=== PATIENT | male | born 1965 | race Caucasian/White ===

== ENCOUNTER 2016-11-27 22:03 | Inpatient (IN) | payer SELFPAY ==
[2016-11-27] MEDS ORDERED: NS 1000 ML 1,000 ML ONE ×2 (22:19→23:22)
[2016-11-27] MEDS ORDERED: NS 1000 ML 1,000 ML IV ONE ×2 (22:19→23:21)
[2016-11-27 22:26] VITALS: BMI 31.0
--- NOTE | 2016-11-27 22:32 | DR.GENAD ---
HPI - PCP Primary Care Physician: FRANCIS - HPI Comment HPI Comment: PATIENT IS NAUSEATED BUT NOT VOMITING. HIS BLOOD PRESURE IS LOW IN TRIAGE. 75/61. PATIENT IS WEAK, DIZZY AND FATIGUE. NO FEVER. PATIENT SAID HE IS BEING EXPOSE TO HIT WELL. - Complaint/Symptoms Chief Complaint Doctors Comments: UPPER ABDOMINAL PAIN, DIARRHEA WITH NAUSEA TIMES TWO DAYS. Chief Complaint:: PT C/O STOMACH PAIN PT POINTS TO UPPER ABD ALL THE WAY ACROSS - Nurses notes reviewed Nurses Notes Review: Yes - Source History Provided: Patient - Mode of Arrival Mode of Arrival: Wheelchair - Timing Onset of Chief Complaint: 11/26/16 Came on: Suddenly - Duration Duration: Constant Duration: Days - Severity Severity: Moderate PMH - PMH Past Medical History: Yes Past Medical History: COPD, Coronary Artery Disease, Hypertension Past Medical History Comment: BACK PAIN Past Surgical History: Yes Surgical History: CABG/Valve Surgery, Cholecystectomy, Joint Replacement - Family History History of Family Medical Conditions: No - Social History Does patient currently use any type of tobacco product: Yes Have you used tobacco products in the last 12 months: Yes Type of Tobacco Use: Cigarettes Does any household member use tobacco: No Alcohol Use: None Do you use any recreational Drugs:: No Lives With: Spouse Lives Where: Home - infectious screening In the last 2 months have you had wt loss of >10#?: NO Have you had fever, night sweats or hemotysis?: No Have you traveled outside the country in the last 6 months?: No Isolation: Standard ROS - Review of Systems Constitutional: Weakness, Fatigue, Loss of Appetite. negative: Chills, Fever Eyes: No Symptoms Reported. negative: Eye Pain, Discharge ENTM: No Symptoms Reported. negative: Ear Pain, Nose Discharge, Nose Congestion , Throat Pain Respiratoy: Non-Productive Cough, Short of Breath. negative: Wheezing, Hemoptysis Cardiovascular: No Symptoms Reported Gastrointestinal/Abdominal: Abdominal Pain, Diarrhea, Nausea. negative: Vomiting Genitourinary: No Symptoms Reported. negative: Dysuria, Frequency, Hematuria Neurological: No Symptoms Reported, Weakness, Dizziness Musculoskeletal: No Symptoms Reported, Muscle Pain Integumentary: No Symptoms Reported Hematologic/Lymphatic: No Symptoms Reported Endocrine: No Symptoms Reported All Other Systems: Reviewed and Negative PE - Vital Signs Vitals: Temperature 98.6 F Pulse Rate [Apical] 70 Pulse Rate 76 Respiratory Rate 23 Blood Pressure [Right Arm] 80/49 Blood Pressure 75/61 O2 Sat by Pulse Oximetry 96 - General Limitations: No Limitations General Appearance: Alert - Head Head Exam: Normal Inspection - Eyes Eye exam: Normal Appearance - ENT ENT Exam: Normal External Ear Exam External Ear Exam: Normal External Inspection TM/Canal Exam: Bilateral Normal Nose Exam: Normal Nose Exam Mouth Exam: Normal Inspection Throat Exam: Normal Inspection - Neck Neck Exam: Normal Inspection, Trachea Midline - Chest Chest Inspection: Symmetric Chest Wall Rise - Respiratory Respiratory Exam: Normal Lung Sounds Bilat Respiratory Exam: Bilateral Rhonchi, Upper Rhonchi, Lower Rhonchi - Cardiovascular Cardiovascular Exam: Regular Rate, Normal Rhythm, Normal Heart Sounds - Abdominal Exam Abdominal Exam: Normal Bowel Sounds, Soft, Tenderness Abdominal Tenderness: Diffuse, Moderate - Extremities Extremities Exam: Normal Inspection, Tenderness - Back Back Exam: Normal Inspection - Neurologic Neurological Exam: Alert, Oriented X3, CN II-XII Intact, Reflexes Normal. negative: Motor Sensory Deficit - Psychiatric Psychiatric Exam: Normal Affect, Normal Mood - Skin Skin Exam: Erythema MDM - Additional Information Additional Information Obtained From: Family - Differential Diagnosis Differential Diagnosis: ABDOMINAL PAIN, HYPOTENSION, DIARRHEA, SEVERE DEHYDRATION Course - Treatment Treatment: SEE ORDERS. - Education/Counseling Education/Counseling: Patient, Education Educated On: Diagnosis, Needs for Follow Up ROR - Labs Reviewed Laboratory Results Reviewed?: Yes Result Diagrams: 11/28/16 04:45 11/28/16 04:45 Laboratory: WBC 13.9 X10^3/uL (3.6-10.0) H 11/27/16 22:26 RBC 4.89 X10^6/uL (4.7-6.0) 11/27/16 22:26 Hgb 14.6 g/dL (13.5-18.0) 11/27/16 22:26 Hct 42.5 % (42.0-54.0) 11/27/16 22:26 MCV 87.0 fL (80.0-100.0) 11/27/16 22:26 MCH 29.9 pg (27.0-34.0) 11/27/16 22:26 MCHC 34.3 g/dL (33.0-35.0) 11/27/16 22:26 RDW 14.3 % (11.6-16.5) 11/27/16 22:26 Plt Count 259 X10^3/uL (150.0-450.0) 11/27/16 22:26 MPV 8.1 fL (7.4-11.0) 11/27/16 22:26 Neut % 73.3 % (42.0-75.0) 11/27/16 22:26 Lymph % 13.8 % (21.0-51.0) L 11/27/16 22:26 Camp % 8.2 % (0.0-13.0) 11/27/16 22:26 Eos % 4.0 % (0.9-2.9) H 11/27/16 22:26 Baso % 0.7 % (0.2-1.0) 11/27/16 22: Neut # 10.2 x10^3/uL (2.2-4.8) H 11/27/16 22:26 Lymph # 1.9 X10^3/uL (1.3-2.9) 11/27/16 22:26 Camp # 1.1 x10^3/uL (0.3-0.8) H 11/27/16 22:26 Eos # 0.6 x10^3/uL (0.0-0.2) H 11/27/16 22:26 Baso # 0.1 X10^3/uL (0.0-0.1) 11/27/16 22:26 Absolute Nucleated RBC 0.0 /100WBC 11/27/16 22:26 INR Target Range - 11/27/16 22:20 INR 1.04 (0.8-1.3) 11/27/16 22:20 PTT 34.3 SECONDS (22.9-36.5) 11/27/16 22:20 PTT Comment - 11/27/16 22:20 Sodium 133 mmol/L (136-145) L 11/27/16 22:26 Corrected Sodium 134 mmol/L (136-145) L 11/27/16 22:26 Potassium 3.9 mmol/L (3.5-5.1) 11/27/16 22:26 Chloride 99 mmol/L (98-107) 11/27/16 22:26 Carbon Dioxide 22.2 mmol/L (21-32) 11/27/16 22:26 BUN 66 mg/dL (7-18) H 11/27/16 22:26 Creatinine 3.81 mg/dL (0.70-1.30) H 11/27/16 22:26 Est GFR (MDRD) Af Amer 21 (>60) L 11/27/16 22:26 Est GFR (MDRD) Non-Af 18 (>60) L 11/27/16 22:26 Glucose 145 mg/dL (65-99) H 11/27/16 22:26 Calcium 8.3 mg/dL (8.5-10.1) L 11/27/16 22:26 Corrected Calcium TNP 11/27/16 22:26 Total Bilirubin 0.60 mg/dL (0.2-1.0) 11/27/16 22:26 AST 52 Units/L (15-37) H 11/27/16 22:26 ALT 38 Units/L (12-78) 11/27/16 22:26 Alkaline Phosphatase 77 Units/L (46-116) 11/27/16 22:26 Creatine Kinase 1222 Units/L (39-308) H 11/27/16 22:26 CK-MB (CK-2) 10.1 ng/mL (0-4.0) H* 11/27/16 22:26 CK/CKMB % Calc 0.8 % (<4) 11/27/16 22:26 Troponin I < 0.02 ng/mL (0-1.5) 11/27/16 22:26 Total Protein 8.0 g/dL (6.4-8.2) 11/27/16 22:26 Albumin 3.8 g/dL (3.4-5.0) 11/27/16 22:26 Globulin 4.2 g/dL (2.5-4.5) 11/27/16 22:26 Albumin/Globulin Ratio 0.9 Ratio (1.1-2.1) L 11/27/16 22:26 Amylase 74 Units/L (25-115) 11/27/16 22:26 Lipase 146 Units/L (73-393) 11/27/16 22:26 - Other Results Comments: REPORT DISCUSS WITH PATIENT - EKG Rhythm: NSR (EKG NOTED) - Diagnosis Discharge Problem: Severe dehydration Hypotension Qualifiers: Hypotension type: unspecified hypotension type Qualified Code(s): I95.9 - Hypotension, unspecified Abdominal pain Qualifiers: Abdominal location: generalized Qualified Code(s): R10.84 - Generalized abdominal pain Diarrhea Qualifiers: Diarrhea type: unspecified type Qualified Code(s): R19.7 - Diarrhea, unspecified - Discharge Plan Disposition: 09 ADMITTED INPATIENT Condition: Stable - Follow ups/Referrals - Instructions
[2016-11-27 22:37] LABS: BASOPHILS # (AUTO) 0.1 X10^3/uL (0.0-0.1); BASOPHILS % (AUTO) 0.7 % (0.2-1.0); EOSINOPHILS # (AUTO) 0.6 x10^3/uL (0.0-0.2); HEMATOCRIT 42.5 % (42.0-54.0); HEMOGLOBIN 14.6 g/dL (13.5-18.0); LYMPHOCYTES # (AUTO) 1.9 X10^3/uL (1.3-2.9); LYMPHOCYTES % (AUTO) 13.8 % (21.0-51.0); MEAN CORPUSCULAR HEMOGLOBIN 29.9 pg (27.0-34.0); MEAN CORPUSCULAR HGB CONC 34.3 g/dL (33.0-35.0); MEAN PLATELET VOLUME 8.1 fL (7.4-11.0); MONOCYTES # (AUTO) 1.1 x10^3/uL (0.3-0.8); MONOCYTES % (AUTO) 8.2 % (0.0-13.0); NEUTROPHILS # (AUTO) 10.2 x10^3/uL (2.2-4.8); NEUTROPHILS % (AUTO) 73.3 % (42.0-75.0); PLATELET COUNT 259 X10^3/uL (150.0-450.0); RED BLOOD COUNT 4.89 X10^6/uL (4.7-6.0); RED CELL DISTRIBUTION WIDTH 14.3 % (11.6-16.5); WHITE BLOOD COUNT 13.9 X10^3/uL (3.6-10.0)
[2016-11-27 22:47] LABS: ALANINE AMINOTRANSFERASE 38 Units/L (12-78); ALBUMIN 3.8 g/dL (3.4-5.0); ALKALINE PHOSPHATASE 77 Units/L (46-116); AMYLASE 74 Units/L (25-115); ASPARTATE AMINO TRANSFERASE 52 Units/L (15-37); BLOOD UREA NITROGEN 66 mg/dL (7-18); CALCIUM 8.3 mg/dL (8.5-10.1); CARBON DIOXIDE 22.2 mmol/L (21-32); CHLORIDE 99 mmol/L (98-107); COR NA(FOR HYPERGLY) 134 mmol/L (136-145); CREATININE 3.81 mg/dL (0.70-1.30); LIPASE 146 Units/L (73-393); SODIUM 133 mmol/L (136-145); eGFR BLACK RACES 21 (>60); eGFR NON BLACK RACES 18 (>60)
--- NOTE | 2016-11-27 23:09 | RAD ---
HISTORY: Epigastric pain Study: Single-view chest Comparison: None Findings: Prior sternotomy. The trachea is midline. The cardiac silhouette is unremarkable. The lungs are daniel ar without focal mass or consolidation. There is no effusion or pneumothorax. The bony thorax is gr ossly unremarkable. IMPRESSION: No acute cardiopulmonary disease. Reported By:
[2016-11-27 23:27] LABS: TROPONIN I < 0.02 ng/mL (0-1.5)
[2016-11-27 23:28] LABS: CKMB % 0.8 % (<4)
[2016-11-27 23:29] LABS: CREATINE KINASE 1222 Units/L (39-308); CREATINE KINASE MB 10.1 ng/mL (0-4.0)
[2016-11-28 00:36] LABS: BILIRUBIN,URINE NEGATIVE (NEGATIVE); BLOOD/HEMOGLOBIN,URINE 4+ (NEGATIVE); GLUCOSE, URINE NEGATIVE (NEGATIVE); KETONES,URINE NEGATIVE (NEGATIVE); LEUKOCYTE ESTERASE ,URINE 2+ (NEGATIVE); NITRITES,URINE NEGATIVE (NEGATIVE); PROTEIN,URINE 2+ (NEGATIVE); UROBILINOGEN,URINE NORMAL (NORMAL)
[2016-11-28] MEDS ORDERED: ROCEPHIN VIAL 1 GM 1 GM in NS 50 ML IV + SPIKE MINIBAG* 50 ML IV ONE (00:38)
[2016-11-28 00:43] LABS: APPEARANCE,URINE SLIGHTLY HAZY (CLEAR); BACTERIA,URINE 1+ /HPF (NEGATIVE); COLOR,URINE YELLOW (YELLOW); HYALINE CASTS, URINE FEW /LPF (NEGATIVE); RBC,URINE 0-3 /HPF (NEGATIVE); SQUAMOUS EPITHELIAL CELL,UR RARE /HPF (NEGATIVE)
[2016-11-28] MEDS ORDERED: ROCEPHIN 1 GM IV PREMIX * OUT OF STOCK 50 ML IV ONE (00:52)
[2016-11-28] MEDS ORDERED: NS 1000 ML 1,000 ML ONE (00:53)
[2016-11-28] MEDS: NS 1000 ML 1,000 ML IV SCH ×3 (00:58→17:03)
[2016-11-28] MEDS ORDERED: NS 1000 ML 1,000 ML IV SCH (01:00)
[2016-11-28] MEDS ORDERED: PEPCID 20 MG IV PREMIX* 20 MG/50 ML BAG IV SCH (02:00)
[2016-11-28] MEDS ORDERED: FLUVIRIN IM ONE (02:10)
[2016-11-28 05:11] LABS: BASOPHILS # (AUTO) 0.1 X10^3/uL (0.0-0.1); EOSINOPHILS # (AUTO) 0.4 x10^3/uL (0.0-0.2); EOSINOPHILS % (AUTO) 4.4 % (0.9-2.9); HEMATOCRIT 39.8 % (42.0-54.0); HEMOGLOBIN 13.8 g/dL (13.5-18.0); LYMPHOCYTES # (AUTO) 1.6 X10^3/uL (1.3-2.9); LYMPHOCYTES % (AUTO) 17.3 % (21.0-51.0); MEAN CORPUSCULAR HEMOGLOBIN 30.3 pg (27.0-34.0); MEAN CORPUSCULAR HGB CONC 34.6 g/dL (33.0-35.0); MEAN CORPUSCULAR VOLUME 87.5 fL (80.0-100.0); MEAN PLATELET VOLUME 8.3 fL (7.4-11.0); MONOCYTES # (AUTO) 0.6 x10^3/uL (0.3-0.8); MONOCYTES % (AUTO) 5.9 % (0.0-13.0); NEUTROPHILS # (AUTO) 6.8 x10^3/uL (2.2-4.8); NEUTROPHILS % (AUTO) 71.4 % (42.0-75.0); PLATELET COUNT 197 X10^3/uL (150.0-450.0); RED BLOOD COUNT 4.55 X10^6/uL (4.7-6.0); RED CELL DISTRIBUTION WIDTH 14.4 % (11.6-16.5); WHITE BLOOD COUNT 9.5 X10^3/uL (3.6-10.0)
[2016-11-28 05:49] LABS: ALANINE AMINOTRANSFERASE 36 Units/L (12-78); ALBUMIN 3.3 g/dL (3.4-5.0); ALKALINE PHOSPHATASE 74 Units/L (46-116); ASPARTATE AMINO TRANSFERASE 44 Units/L (15-37); BLOOD UREA NITROGEN 51 mg/dL (7-18); CALCIUM 7.9 mg/dL (8.5-10.1); CARBON DIOXIDE 25.4 mmol/L (21-32); CHLORIDE 107 mmol/L (98-107); COR CA(FOR HYPOALB) 8.5 mg/dL (8.5-10.1); COR NA(FOR HYPERGLY) 138 mmol/L (136-145); CREATINE KINASE 741 Units/L (39-308); CREATININE 1.87 mg/dL (0.70-1.30); MAGNESIUM 2.6 mg/dL (1.7-2.9); SODIUM 138 mmol/L (136-145); TOTAL PROTEIN 7.2 g/dL (6.4-8.2); TROPONIN I < 0.02 ng/mL (0-1.5); eGFR BLACK RACES 49 (>60); eGFR NON BLACK RACES 40 (>60)
[2016-11-28 05:50] LABS: CREATINE KINASE MB 7.2 ng/mL (0-4.0)
[2016-11-28] MEDS: PEPCID 20 MG IV PREMIX* 20 MG/50 ML BAG IV SCH (09:13)
[2016-11-28 11:15] LABS: CREATINE KINASE 579 Units/L (39-308); TROPONIN I < 0.02 ng/mL (0-1.5)
[2016-11-28 11:20] LABS: CREATINE KINASE MB 5.5 ng/mL (0-4.0)
[2016-11-28 11:22] LABS: CRYPTOSPORIDIUM PARVUM ANTIGEN NEGATIVE (NEGATIVE); GIARDIA LAMBLIA ANTIGEN NEGATIVE (NEGATIVE)
--- NOTE | 2016-11-28 14:07 | DR.H&P ---
H&P - History & Physical for Day of: H&P Date: 11/27/16 - Chief Complaint Chief Complaint: abdominal pain, n/v/d, dehydration, hypotensive - Allergies Allergies/Adverse Reactions: Allergies Allergy/AdvReac Type Severity Reaction Status Date / Time No Known Drug Allergies Allergy Verified 11/27/16 22:08 - History of Present Illness History of Present Illness: patient is a 51-year-old white male who is an ER admission after presenting with complaints of abdominal pain nausea vomiting diarrhea severe weakness after heat exposure patient was noted to be severely dehydrated with acute renal insufficiency patient also was hypotensive. Patient was admitted to ICU for further evaluation, IV hydration and cardiac monitoring. - Past Medical History Past Medical History: COPD, Coronary Artery Disease, Hypertension - Past Surgical History Surgical History: CABG/Valve Surgery, Cholecystectomy, Joint Replacement - Social History Does patient currently use any type of tobacco product: Yes Have you used tobacco products in the last 12 months: Yes Type of Tobacco Use: Cigarettes Does any household member use tobacco: No Alcohol Use: None Drug Use: Marijuana - Medications Home Medications: Aspirin EC [ASPIRIN EC 81 MG *] 81 mg PO DAILY 11/27/16 [History Confirmed 11/28] Esomeprazole Magnesium [Nexium 24Hr 20 mg OTC] 20 mg PO DAILY 11/27/16 [History Confirmed 11/28/16] Gabapentin [Neurontin Cap 300 mg] 300 mg PO BID 11/27/16 [History Confirmed 04/15] Hydrocodone/Acetaminophen [Lorcet Plus 7.5-325 mg] 1 tab PO BID 11/27/16 [ History Confirmed 11/28/16] Lisinopril 10 mg PO BID 11/27/16 [History Confirmed 11/28/16] Oxybutynin Chloride [Ditropan Tab 5 mg] 5 mg PO BID 11/27/16 [History Confirmed 11/28/16] - Review of Systems Constitutional: Weakness Eyes: No Symptoms Reported ENT: No Symptoms Reported Respiratory: Shortness of Breath Cardiovascular: No Symptoms Reported Gastrointestinal: Abdominal Pain Genitourinary: No Symptoms Reported Musculoskeletal: Back Pain, Leg Pain Skin: No Symptoms Reported Neurological: Weakness - Physical Exam Vital Signs: Temperature 97.7 F Pulse Rate [Apical] 62 Pulse Rate 76 Respiratory Rate 20 Blood Pressure [Left Arm] 146/67 Blood Pressure [Right Arm] 96/64 Blood Pressure 75/61 O2 Sat by Pulse Oximetry 94 Oriented: Normal Eyes: Normal Ear: Normal Nose: Normal Throat: Dry Respiratory: Wheezes Throughout Auscultation: Bowel Sounds: Normal Palpation: Normal Tenderness: Epigastric Skin: Decreased Turgur Musculoskeletal: Back:Lumbar Psychiatric: Anxiety Speech Pattern: Clear, Appropriate - Assessment/Plan (1) Acute renal failure Status: Acute Plan: plan to continue gentle IV hydration, cardiac monitoring, repeat a.m. labs, repeat creatinine kinase. continue IV Rocephin 1 g daily until culture sensitivity results. Encouraged oral hydration, ambulation with assistance. (2) Abdominal pain Qualifiers: Abdominal location: generalized Qualified Code(s): R10.84 - Generalized abdominal pain Status: Acute (3) Hypotension Qualifiers: Hypotension type: unspecified hypotension type Qualified Code(s): I95.9 - Hypotension, unspecified Status: Acute (4) Severe dehydration Status: Acute
[2016-11-28] MEDS: ROCEPHIN VIAL 1 GM 1 GM in NS 50 ML IV + SPIKE MINIBAG* 50 ML IV SCH (14:10)
[2016-11-28] MEDS: NICOTINE PATCH TD SCH (17:33)
[2016-11-28] MEDS: NORCO 5/325 MG TAB PO PRN ×2 (18:29→23:15)
[2016-11-28] MEDS: TYLENOL 325 MG TAB PO PRN (20:07)
[2016-11-28] MEDS: CHECK PATCH XX SCH (20:08)
[2016-11-29] MEDS: NS 1000 ML 1,000 ML IV SCH ×5 (00:45→23:46)
[2016-11-29] MEDS: NORCO 5/325 MG TAB PO PRN ×3 (04:59→20:33)
[2016-11-29 05:13] LABS: BASOPHILS % (AUTO) 0.7 % (0.2-1.0); EOSINOPHILS # (AUTO) 0.3 x10^3/uL (0.0-0.2); EOSINOPHILS % (AUTO) 3.9 % (0.9-2.9); HEMATOCRIT 37.1 % (42.0-54.0); HEMOGLOBIN 13.1 g/dL (13.5-18.0); LYMPHOCYTES # (AUTO) 1.5 X10^3/uL (1.3-2.9); LYMPHOCYTES % (AUTO) 22.2 % (21.0-51.0); MEAN CORPUSCULAR HEMOGLOBIN 30.6 pg (27.0-34.0); MEAN CORPUSCULAR HGB CONC 35.2 g/dL (33.0-35.0); MEAN CORPUSCULAR VOLUME 86.9 fL (80.0-100.0); MEAN PLATELET VOLUME 8.3 fL (7.4-11.0); MONOCYTES # (AUTO) 0.5 x10^3/uL (0.3-0.8); MONOCYTES % (AUTO) 7.6 % (0.0-13.0); NEUTROPHILS # (AUTO) 4.3 x10^3/uL (2.2-4.8); NEUTROPHILS % (AUTO) 65.6 % (42.0-75.0); PLATELET COUNT 170 X10^3/uL (150.0-450.0); RED BLOOD COUNT 4.27 X10^6/uL (4.7-6.0); RED CELL DISTRIBUTION WIDTH 14.2 % (11.6-16.5); WHITE BLOOD COUNT 6.6 X10^3/uL (3.6-10.0)
[2016-11-29 05:14] LABS: ALANINE AMINOTRANSFERASE 33 Units/L (12-78); ALBUMIN 3.1 g/dL (3.4-5.0); ALKALINE PHOSPHATASE 59 Units/L (46-116); ASPARTATE AMINO TRANSFERASE 33 Units/L (15-37); BLOOD UREA NITROGEN 17 mg/dL (7-18); CALCIUM 8.3 mg/dL (8.5-10.1); CARBON DIOXIDE 24.7 mmol/L (21-32); CHLORIDE 111 mmol/L (98-107); CREATINE KINASE 310 Units/L (39-308); CREATININE 0.68 mg/dL (0.70-1.30); SODIUM 144 mmol/L (136-145); TOTAL PROTEIN 6.7 g/dL (6.4-8.2); eGFR BLACK RACES > 60 (>60); eGFR NON BLACK RACES > 60 (>60)
[2016-11-29] MEDS: ROCEPHIN VIAL 1 GM 1 GM in NS 50 ML IV + SPIKE MINIBAG* 50 ML IV SCH (08:24)
[2016-11-29] MEDS: ZESTRIL TAB 10 MG PO SCH (08:26)
[2016-11-29] MEDS: NICOTINE PATCH TD SCH (08:28)
[2016-11-29] MEDS: CHECK PATCH XX SCH ×2 (08:28→20:31)
[2016-11-29] MEDS: PEPCID 20 MG IV PREMIX* 20 MG/50 ML BAG IV SCH ×2 (09:15→20:32)
[2016-11-29] MEDS ORDERED: NORVASC TAB 5 MG PO NR (13:32)
[2016-11-29] MEDS: LEVSIN/MAALOX/LIDOC VISC PO SCH ×3 (13:50→20:31)
[2016-11-29 14:25] LABS: CKMB % 0.6 % (<4); CREATINE KINASE 233 Units/L (39-308); CREATINE KINASE MB 1.5 ng/mL (0-4.0); TROPONIN I < 0.02 ng/mL (0-1.5)
[2016-11-29] MEDS: BIAXIN TAB 500 MG PO SCH (15:14)
[2016-11-29] MEDS: AMOXIL CAP 500 MG PO SCH (15:14)
[2016-11-29] MEDS: PREVACID PO SCH (15:14)
--- NOTE | 2016-11-29 18:16 | PCM.PROG ---
Progress Note - Progress Note for Day of Date: 11/29/16 - Subjective Subjective: patient is a 51-year-old white male who was admitted on 11/28/2016 with hypotension and severe dehydration patient has significantly improved renal function this a.m. B UN 17 creatinine 0.68. Patient was noted to be hypertensive this morning previously taken lisinopril. Patient's lisinopril restarted for blood pressure control. Patient also complained of epigastric pain H pylori was ordered as well as EKG and cardiac enzymes. - Past Medical Family Social History Past Med/Fam/Surg Hx: No changes since H&P Allergies: Allergies No Known Drug Allergies Allergy (Verified 11/27/16 22:08) - Review of Systems ROS: No change since H&P - Vital Signs and I&O's Vital Signs: Temperature 98.5 F Pulse Rate [Apical] 56 Pulse Rate 76 Respiratory Rate 12 Blood Pressure [Left Arm] 182/76 Blood Pressure [Right Arm] 180/92 Blood Pressure 75/61 O2 Sat by Pulse Oximetry 99 Intake and Output: Intake & Output 11/27/16 11/28/16 11/29/16 11/30/16 11:59 11:59 11:59 11:59 Intake Total 645 4704 1765 Output Total 1200 2050 850 Balance -555 7417 915 - Physical Exam Oriented: Normal Eyes: Normal Ear: Normal Nose: Normal Throat: Dry Respiratory: Diminished Cardiovascular: Normal Auscultation: Bowel Sounds: Normal Tenderness: Epigastric Skin: Decreased Turgur Musculoskeletal: Back:Lumbar Psychiatric: Anxiety Speech Pattern: Clear, Appropriate - Laboratory and Diagnostics Result Diagrams: 11/29/16 04:25 11/29/16 04:25 Labs: 11/28/16 09:49 Stool Stool Culture - Preliminary 11/28/16 09:49 Stool - Final 11/28/16 00:19 Urine,Clean Catch Urine Culture - Preliminary Laboratory WBC 6.6 X10^3/uL (3.6-10.0) 11/29/16 04:25 RBC 4.27 X10^6/uL (4.7-6.0) L 11/29/16 04:25 Hgb 13.1 g/dL (13.5-18.0) L 11/29/16 04:25 Hct 37.1 % (42.0-54.0) L 11/29/16 04:25 MCV 86.9 fL (80.0-100.0) 11/29/16 04:25 MCH 30.6 pg (27.0-34.0) 11/29/16 04:25 MCHC 35.2 g/dL (33.0-35.0) H 11/29/16 04:25 RDW 14.2 % (11.6-16.5) 11/29/16 04:25 Plt Count 170 X10^3/uL (150.0-450.0) 11/29/16 04:25 MPV 8.3 fL (7.4-11.0) 11/29/16 04:25 Neut % 65.6 % (42.0-75.0) 11/29/16 04:25 Lymph % 22.2 % (21.0-51.0) 11/29/16 04:25 Carter % 7.6 % (0.0-13.0) 11/29/16 04:25 Eos % 3.9 % (0.9-2.9) H 11/29/16 04:25 Baso % 0.7 % (0.2-1.0) 11/29/16 04:25 Neut # 4.3 x10^3/uL (2.2-4.8) 11/29/16 04:25 Lymph # 1.5 X10^3/uL (1.3-2.9) 11/29/16 04:25 Carter # 0.5 x10^3/uL (0.3-0.8) 11/29/16 04:25 Eos # 0.3 x10^3/uL (0.0-0.2) H 11/29/16 04:25 Baso # 0.0 X10^3/uL (0.0-0.1) 11/29/16 04:25 Absolute Nucleated RBC 0.0 /100WBC 11/29/16 04:25 INR Target Range - 11/27/16 22:20 INR 1.04 (0.8-1.3) 11/27/16 22:20 PTT 34.3 SECONDS (22.9-36.5) 11/27/16 22:20 PTT Comment - 11/27/16 22:20 Sodium 144 mmol/L (136-145) 11/29/16 04:25 Corrected Sodium TNP 11/29/16 04:25 Potassium 4.4 mmol/L (3.5-5.1) 11/29/16 04:25 Chloride 111 mmol/L (98-107) H 11/29/16 04:25 Carbon Dioxide 24.7 mmol/L (21-32) 11/29/16 04:25 BUN 17 mg/dL (7-18) 11/29/16 04:25 Creatinine 0.68 mg/dL (0.70-1.30) L 11/29/16 04:25 Est GFR (MDRD) Af Amer > 60 (>60) 11/29/16 04:25 Est GFR (MDRD) Non-Af > 60 (>60) 11/29/16 04:25 Glucose 104 mg/dL (65-99) H 11/29/16 04:25 Calcium 8.3 mg/dL (8.5-10.1) L 11/29/16 04:25 Corrected Calcium 9.0 mg/dL (8.5-10.1) 11/29/16 04:25 Magnesium 2.6 mg/dL (1.7-2.9) 11/28/16 04:45 Total Bilirubin 0.30 mg/dL (0.2-1.0) 11/29/16 04:25 AST 33 Units/L (15-37) 11/29/16 04:25 ALT 33 Units/L (12-78) 11/29/16 04:25 Alkaline Phosphatase 59 Units/L (46-116) 11/29/16 04:25 Creatine Kinase 233 Units/L (39-308) 11/29/16 13:45 CK-MB (CK-2) 1.5 ng/mL (0-4.0) 11/29/16 13:45 CK/CKMB % Calc 0.6 % (<4) 11/29/16 13:45 Troponin I < 0.02 ng/mL (0-1.5) 11/29/16 13:45 Total Protein 6.7 g/dL (6.4-8.2) 11/29/16 04:25 Albumin 3.1 g/dL (3.4-5.0) L 11/29/16 04:25 Globulin 3.6 g/dL (2.5-4.5) 11/29/16 04:25 Albumin/Globulin Ratio 0.9 Ratio (1.1-2.1) L 11/29/16 04:25 Amylase 74 Units/L (25-115) 11/27/16 22:26 Lipase 146 Units/L (73-393) 11/27/16 22:26 Specimen Type Clean catch urine 11/28/16 00:19 Urine Color Yellow (YELLOW) 11/28/16 00:19 Urine Appearance Slightly hazy (CLEAR) 11/28/16 00:19 Urine pH 5.0 (5.0 - 8.0) 11/28/16 00:19 Ur Specific [place] 1.015 (1.000-1.030) 11/28/16 00:19 Urine Protein 2+ (NEGATIVE) 11/28/16 00:19 Urine Glucose (UA) Negative (NEGATIVE) 11/28/16 00:19 Urine Ketones Negative (NEGATIVE) 11/28/16 00:19 Urine Occult Blood 4+ (NEGATIVE) 11/28/16 00:19 Urine Nitrite Negative (NEGATIVE) 11/28/16 00:19 Urine Bilirubin Negative (NEGATIVE) 11/28/16 00:19 Urine Urobilinogen Normal (NORMAL) 11/28/16 00:19 Ur Leukocyte Esterase 2+ (NEGATIVE) 11/28/16 00:19 Urine RBC 0-3 /HPF (NEGATIVE) 11/28/16 00:19 Urine WBC 8-10 /HPF (NEGATIVE) 11/28/16 00:19 Ur Squamous Epith Cells Rare /HPF (NEGATIVE) 11/28/16 00:19 Urine Bacteria 1+ /HPF (NEGATIVE) 11/28/16 00:19 Hyaline Casts Few /LPF (NEGATIVE) 11/28/16 00:19 Ur Culture Indicated? Yes/culture set up 11/28/16 00:19 Stool Description 60g soft brown 11/28/16 09:49 Stl C. diff Tox B Gene Negative (NEGATIVE) 11/28/16 09:49 Stl C. diff [id number] Negative (NEGATIVE) 11/28/16 09:49 Urine Opiates Screen Positive (NEG=<300) 11/28/16 00:19 Urine Methadone Screen Negative (NEG=<300) 11/28/16 00:19 Ur Barbiturates Screen Negative (NEG=<200) 11/28/16 00:19 Ur Phencyclidine Scrn Negative (NEG=<25) 11/28/16 00:19 Ur Amphetamines Screen Negative (NEG=<1000) 11/28/16 00:19 U Benzodiazepines Scrn Negative (NEG=<200) 11/28/16 00:19 Urine Cocaine Screen Negative (NEG=<300) 11/28/16 00:19 U Marijuana (THC) Screen Positive (NEG=<50) A 11/28/16 00:19 Cryptosporid parvum Ag Negative (NEGATIVE) 11/28/16 09:49 E. histolytica Antigen Negative (NEGATIVE) 11/28/16 09:49 Giardia lamblia Ag Negative (NEGATIVE) 11/28/16 09:49 H. pylori IgG Antibody Positive (NEGATIVE) A 11/29/16 04:25 - Plan (1) Acute renal failure Status: Acute Plan: plan to continue gentle IV hydration, cardiac monitoring, repeat a.m. labs, repeat creatinine kinase. continue IV Rocephin 1 g daily until culture sensitivity results. Encouraged oral hydration, ambulation with assistance. (2) Hypertension Status: Acute (3) Abdominal pain Status: Acute Qualifiers: Abdominal location: generalized Qualified Code(s): R10.84 - Generalized abdominal pain Plan: EPIGASTRIC PAIN, HYPYLORI ORDERED, GI COCKTAIL. CONTINUE IV PEPCID (4) Hypotension Status: Acute Qualifiers: Hypotension type: unspecified hypotension type Qualified Code(s): I95.9 - Hypotension, unspecified Plan: RESOLVED, HYPERTENSIVE THIS AM. WILL RESUME LISINOPRIL (5) Severe dehydration Status: Acute Plan: RESOLVED
[2016-11-29] MEDS: TYLENOL 325 MG TAB PO PRN (19:05)
[2016-11-29] MEDS ORDERED: MORPHINE SULFATE INJ 2 MG INJ ONE (23:41)
[2016-11-29] MEDS: MORPHINE SULFATE INJ 2 MG INJ IVP PRN (23:45)
[2016-11-30] MEDS ORDERED: APRESOLINE INJ 20 MG VIAL IVP PRN (01:32)
[2016-11-30] MEDS ORDERED: CATAPRES TAB 0.1 MG PO PRN (01:32)
[2016-11-30] MEDS: NORVASC TAB 10 MG PO SCH ×2 (01:47→12:44)
[2016-11-30] MEDS: NS 1000 ML 1,000 ML IV SCH ×4 (01:48→11:18)
[2016-11-30] MEDS: NORCO 5/325 MG TAB PO PRN ×2 (03:35→09:43)
[2016-11-30 05:26] LABS: BASOPHILS % (AUTO) 0.7 % (0.2-1.0); EOSINOPHILS # (AUTO) 0.2 x10^3/uL (0.0-0.2); EOSINOPHILS % (AUTO) 2.8 % (0.9-2.9); HEMATOCRIT 37.4 % (42.0-54.0); LYMPHOCYTES # (AUTO) 1.5 X10^3/uL (1.3-2.9); LYMPHOCYTES % (AUTO) 21.5 % (21.0-51.0); MEAN CORPUSCULAR HEMOGLOBIN 29.9 pg (27.0-34.0); MEAN CORPUSCULAR HGB CONC 34.7 g/dL (33.0-35.0); MEAN CORPUSCULAR VOLUME 86.1 fL (80.0-100.0); MEAN PLATELET VOLUME 8.4 fL (7.4-11.0); MONOCYTES # (AUTO) 0.5 x10^3/uL (0.3-0.8); MONOCYTES % (AUTO) 6.6 % (0.0-13.0); NEUTROPHILS # (AUTO) 4.8 x10^3/uL (2.2-4.8); NEUTROPHILS % (AUTO) 68.4 % (42.0-75.0); PLATELET COUNT 185 X10^3/uL (150.0-450.0); RED BLOOD COUNT 4.34 X10^6/uL (4.7-6.0); RED CELL DISTRIBUTION WIDTH 13.9 % (11.6-16.5); WHITE BLOOD COUNT 7.1 X10^3/uL (3.6-10.0)
[2016-11-30 05:43] LABS: ALANINE AMINOTRANSFERASE 36 Units/L (12-78); ALBUMIN 3.2 g/dL (3.4-5.0); ALKALINE PHOSPHATASE 58 Units/L (46-116); ASPARTATE AMINO TRANSFERASE 29 Units/L (15-37); BLOOD UREA NITROGEN 7 mg/dL (7-18); CALCIUM 8.4 mg/dL (8.5-10.1); CARBON DIOXIDE 26.7 mmol/L (21-32); CHLORIDE 106 mmol/L (98-107); CREATININE 0.69 mg/dL (0.70-1.30); SODIUM 139 mmol/L (136-145); TOTAL PROTEIN 6.9 g/dL (6.4-8.2); eGFR BLACK RACES > 60 (>60); eGFR NON BLACK RACES > 60 (>60)
[2016-11-30] MEDS ORDERED: ROBITUSSIN DM PO PRN (06:14)
[2016-11-30] MEDS: MORPHINE SULFATE INJ 2 MG INJ IVP PRN ×2 (06:18→11:16)
[2016-11-30] MEDS: NICOTINE PATCH TD SCH (08:41)
[2016-11-30] MEDS: AMOXIL CAP 500 MG PO SCH (08:42)
[2016-11-30] MEDS: ZESTRIL TAB 10 MG PO SCH (08:42)
[2016-11-30] MEDS: BIAXIN TAB 500 MG PO SCH (08:42)
[2016-11-30] MEDS: LEVSIN/MAALOX/LIDOC VISC PO SCH ×2 (08:43→12:44)
[2016-11-30] MEDS: PREVACID PO SCH (08:43)
[2016-11-30] MEDS: PEPCID 20 MG IV PREMIX* 20 MG/50 ML BAG IV SCH (08:45)
[2016-11-30] MEDS: CHECK PATCH XX SCH (08:46)
[2016-11-30] MEDS: ROCEPHIN VIAL 1 GM 1 GM in NS 50 ML IV + SPIKE MINIBAG* 50 ML IV SCH (09:43)
[2016-11-30 14:42] VITALS: BP 178/82
== END 2016-11-30 14:00 | disposition home or self-care (01) | DRG 683 ==
LOC: ER 22:03 → ICU 11-28 00:45
PROVIDERS: ADMIT Internal Medicine; ATTEND Internal Medicine
PROC: 3E0234Z Introduction of Serum, Toxoid and Vaccine into Muscle, Percutaneous Approach (ICD-10-PCS; principal; 2016-11-28)
DX: N17.8 Other acute kidney failure (principal); I95.89 Other hypotension; E86.0 Dehydration; R10.84 Generalized abdominal pain; R19.7 Diarrhea, unspecified; J44.9 Chronic obstructive pulmonary disease, unspecified; I25.10 Atherosclerotic heart disease of native coronary artery without angina pectoris; I10 Essential (primary) hypertension; R94.31 Abnormal electrocardiogram [ECG] [EKG]; N39.0 Urinary tract infection, site not specified; M62.82 Rhabdomyolysis; X30.XXXA Exposure to excessive natural heat, initial encounter; Z23 Encounter for immunization
CPT/HCPCS: 36415; 71010; 74176; 80053; 80307; 81001; 82150; 82550; 82553; 83690; 83735; 84484; 85025; 85610; 85730; 86677; 87040; 87045; 87086; 87328; 87329; 87336; 87427; 87493; 87899; 90686; 93005; 93010; 96365; 96367; 96374; 99221; 99284; A4216; A4222; S0028; G0434; J0696; J2270

== ENCOUNTER 2017-03-12 16:41 | Emergency (ER) | payer SELFPAY ==
[2017-03-12 16:56] VITALS: BMI 31.0
[2017-03-12 16:57] VITALS: BP 167/87
--- NOTE | 2017-03-12 17:03 | DR.EXTPAIN ---
HPI - Time seen Time seen: 17:15 - PCP Primary Care Physician: FRANCIS HULL - Complaint/Symptoms Chief Complaint Doctor Comments: Patient presents to the ED with complatin of severe back pain. He is being followed by his primary care physician and the hydrocodone 5/325 is not helping. He has a history of degenerative joint disease. Chief Complaint:: PT C/O BACK PAIN AND RUNNING OUT OF HIS [place] MONDAY AND PT STATES " I HAVE A BLOOD BLISTER ON MY SPINE THAT CAUSES BURNING FROM MY BACK TO MY FEET AND LIKE THERE IS A JEANNETTE HAMMER IN MY BACK". Self Treatment fo Chief Complaint: PT STATES " WALKING AND STANDING MAKES IT WORSE". - Source History Provided: Patient - Mode of arrival Mode of Arrival: Ambulatory - Timing Onset of Chief Complaint: 03/18/17 PMH - PMH Past Medical History: Yes Past Medical History: COPD, Coronary Artery Disease, Hypertension Past Surgical History: Yes Surgical History: CABG/Valve Surgery, Cholecystectomy, Joint Replacement - Family History History of Family Medical Conditions: No - Social History Does patient currently use any type of tobacco product: Yes Have you used tobacco products in the last 12 months: Yes Type of Tobacco Use: Cigarettes How many years tobacco product used: 30 Does any household member use tobacco: No Alcohol Use: None Do you use any recreational Drugs:: No Lives With: Family Lives Where: Home - infectious screening In the last 2 months have you had wt loss of >10#?: NO Have you had fever, night sweats or hemotysis?: No Have you traveled outside the country in the last 6 months?: No Isolation: Standard ROS - Review of Systems Constitutional: No Symptoms Reported Eyes: No Symptoms Reported ENTM: No Symptoms Reported Respiratoy: No Symptoms Reported Cardiovascular: No Symptoms Reported Gastrointestinal/Abdominal: No Symptoms Reported Genitourinary: No Symptoms Reported Neurological: No Symptoms Reported Musculoskeletal: Back Pain Integumentary: No Symptoms Reported Hematologic/Lymphatic: No Symptoms Reported Endocrine: No Symptoms Reported Psychiatric: No Symptoms Reported All Other Systems: Reviewed and Negative PE - Vital Signs Vitals: Temperature 98.2 F Pulse Rate 85 Respiratory Rate 18 Blood Pressure [Left Arm] 178/84 Blood Pressure [Right Arm] 178/82 Blood Pressure 167/87 O2 Sat by Pulse Oximetry 96 - General Limitations: No Limitations General Appearance: Alert - Head Head Exam: Normal Inspection, Atraumatic - Eyes Eye exam: Normal Appearance, PERRL, EOMI - ENT ENT Exam: Normal Exam - Neck Neck Exam: Normal Inspection, Full ROM - Chest Chest Inspection: Normal Inspection - Respiratory Respiratory Exam: Normal Lung Sounds Bilat Respiratory Exam: Bilateral Clear to Auscultation - Cardiovascular Cardiovascular Exam: Regular Rate, Normal Rhythm - Abdominal Exam Abdominal Exam: Normal Inspection, Normal Bowel Sounds Abdominal Tenderness: negative: RUQ, RLQ, LUQ, LLQ, Epigastrium, Suprapubic, Diffuse, Mild, Moderate, Severe, Other - Extremities Extremities Exam: Normal Inspection, Full ROM - Upper Extremities Shoulder Exam: Normal Inspection, Full ROM Arm Exam: Normal Inspection, Full ROM Elbow Exam: Normal Inspection Forearm Exam: Normal Inspection Hand Exam: Normal Inspection Neuromotor Exam: Normal Exam Neurosensory Exam: Normal Exam Hand Tendon Exam: Flexor Digitorium Profundus (Location) Upper Ext. Vascular Exam: Capillary Refill, Radial Pulse - Lower Extremities Hip/Pelvis Exam: Normal Inspection Upper Leg Exam: Normal Inspection Knee Exam: Normal Inspection Lower Leg Exam: Normal Inspection Ankle Exam: Normal Inspection Foot/Toe Exam: Normal Inspection Neurovascular/Tendon Exam: Normal Capillary Refill Gait Exam: Not Tested/Not Observed - Back Back Exam: Tenderness, (R) CVA Tenderness, (L) CVA Tenderness - Neurological Neurological Exam: Alert, Oriented X3, CN II-XII Intact - Psychiatric Psychiatric Exam: Normal Affect - Skin Skin Exam: Warm, Dry, Intact - Diagnosis Discharge Problem: Chronic back pain Qualifiers: Back pain location: low back pain Back pain laterality: midline Sciatica presence: with sciatica Sciatica laterality: sciatica of left side Qualified Code(s): M54.42 - Lumbago with sciatica, left side; G89.29 - Other chronic pain ; G89.29 - Other chronic pain - Discharge Plan Condition: Stable - Follow ups/Referrals Follow ups/Referrals: BEAU BLANCO [Primary Care Provider] - 3 days - Instructions
[2017-03-12] MEDS ORDERED: DILAUDID INJ ONE (17:38)
[2017-03-12] MEDS: DILAUDID INJ IM ONE (17:41)
== END 2017-03-12 18:06 | disposition home or self-care (01) ==
LOC: ER 16:41
DX: M54.42 Lumbago with sciatica, left side (principal); G89.29 Other chronic pain
CPT/HCPCS: 96372; 99282

== ENCOUNTER 2017-04-04 17:20 | Emergency (ER) | payer SELFPAY ==
[2017-04-04 17:30] VITALS: BMI 31.0
--- NOTE | 2017-04-04 18:58 | RAD ---
Two views of the right hip indication: Right hip pain. Conclusion: The pelvis shows no fracture or malalignment. There is minimal degenerative arthrosis of both hips. No evidence of osteonecrosis is seen. Reported By:
--- NOTE | 2017-04-04 19:24 | DR.GENAD ---
HPI - PCP Primary Care Physician: dayanara - Complaint/Symptoms Chief Complaint:: patient stated he fell on concret after lunch today and started having right hip pain that is making his right leg tingle. he also stated his chest started hurting after lunch on his left side. he also stated he has been out of his meds for over a week. - Source History Provided: Patient - Mode of Arrival Mode of Arrival: Ambulatory - Timing Onset of Chief Complaint: 04/04/17 PMH - PMH Past Medical History: Yes Past Medical History: COPD, GERD, Hypertension Past Surgical History: Yes Surgical History: CABG/Valve Surgery, Cholecystectomy, Joint Replacement - Family History History of Family Medical Conditions: Yes Family Medical History: Diabetes Mellitus, DC, Hypertension - Social History Does patient currently use any type of tobacco product: Yes Have you used tobacco products in the last 12 months: Yes Type of Tobacco Use: Cigarettes How many years tobacco product used: 20 Does any household member use tobacco: Yes Alcohol Use: None Do you use any recreational Drugs:: No Lives With: Family Lives Where: Home - infectious screening In the last 2 months have you had wt loss of >10#?: NO Have you had fever, night sweats or hemotysis?: No Have you traveled outside the country in the last 6 months?: No Isolation: Standard ROS - Review of Systems Eyes: No Symptoms Reported ENTM: No Symptoms Reported Respiratoy: No Symptoms Reported Cardiovascular: No Symptoms Reported Gastrointestinal/Abdominal: No Symptoms Reported Genitourinary: No Symptoms Reported Neurological: No Symptoms Reported Musculoskeletal: No Symptoms Reported Integumentary: No Symptoms Reported Hematologic/Lymphatic: No Symptoms Reported Endocrine: No Symptoms Reported Psychiatric: No Symptoms Reported All Other Systems: Reviewed and Negative PE - Vital Signs Vitals: Temperature 98.9 F Pulse Rate 72 Respiratory Rate 18 Blood Pressure [Left Arm] 178/84 Blood Pressure [Right Arm] 178/82 Blood Pressure 148/82 O2 Sat by Pulse Oximetry 94 - General Limitations: No Limitations General Appearance: Alert, In No Apparent Distress - Head Head Exam: Normal Inspection, Atraumatic - Eyes Eye exam: Normal Appearance, PERRL, EOMI - ENT ENT Exam: Normal Exam External Ear Exam: Normal External Inspection TM/Canal Exam: Bilateral Normal Nose Exam: Normal Nose Exam Mouth Exam: Normal Inspection Throat Exam: Normal Inspection - Neck Neck Exam: Normal Inspection, Full ROM - Chest Chest Inspection: Normal Inspection - Respiratory Respiratory Exam: Normal Lung Sounds Bilat Respiratory Exam: Bilateral Clear to Auscultation - Cardiovascular Cardiovascular Exam: Regular Rate, Normal Rhythm - Abdominal Exam Abdominal Exam: Normal Inspection, Normal Bowel Sounds Abdominal Tenderness: negative: RUQ, RLQ, LUQ, LLQ, Epigastrium, Suprapubic, Diffuse, Mild, Moderate, Severe, Other - Extremities Extremities Exam: Normal Inspection, Full ROM - Back Back Exam: Normal Inspection, Full ROM - Neurologic Neurological Exam: Alert, Oriented X3, CN II-XII Intact - Psychiatric Psychiatric Exam: Normal Affect - Skin Skin Exam: Warm, Dry, Intact ROR - Labs Reviewed Laboratory Results Reviewed?: Yes (cardiacs negative) Laboratory: Creatine Kinase 82 Units/L (39-308) 04/04/17 20:10 CK-MB (CK-2) < 1.0 ng/mL (0-4.0) 04/04/17 20:10 CK/CKMB % Calc 1.2 % (<4) 04/04/17 20:10 Troponin I < 0.02 ng/mL (0-1.5) 04/04/17 20:10 - XRAY XRAY Interpreted by: Radiologist (Hip: the pelvis shows no fracture or malalignment. There is minimal degenerative arthrosis of both hips. No evidence of osteonecrosis is seen.) - Diagnosis Discharge Problem: Contusion, hip Qualifiers: Encounter type: initial encounter Laterality: right Qualified Code(s): S70.01XA - Contusion of right hip, initial encounter - Discharge Plan Condition: Stable - Follow ups/Referrals Follow ups/Referrals: BEAU BLANCO [Primary Care Provider] - 3 days - Instructions
[2017-04-04 20:42] LABS: CKMB % 1.2 % (<4); CREATINE KINASE 82 Units/L (39-308); CREATINE KINASE MB < 1.0 ng/mL (0-4.0); TROPONIN I < 0.02 ng/mL (0-1.5)
[2017-04-04] MEDS ORDERED: TORADOL 60 MG VIAL IM ONE (20:56)
[2017-04-04] MEDS ORDERED: TORADOL 60 MG VIAL ONE (20:58)
[2017-04-04 21:04] VITALS: BP 142/85
== END 2017-04-04 21:14 | disposition home or self-care (01) ==
LOC: ER 17:36
DX: S70.01XA Contusion of right hip, initial encounter (principal)
CPT/HCPCS: 36415; 73501; 82550; 82553; 84484; 93005; 93010; 96372; 99283; J1885

== ENCOUNTER 2017-09-12 18:16 | Observation (INO) ==
--- NOTE | 2017-09-12 18:31 | RAD ---
HISTORY: Chest pain Study: AP portable chest Comparison: 11/29/2016 Findings: Minimal hyperinflation is noted. There appears to be minimal pulmonary vascular congestion. Borderl ine cardiomegaly is noted. No acute bony abnormalities are identified. IMPRESSION: 1. Borderline cardiomegaly with minimal pulmonary vascular congestion. Reported By:
[2017-09-12 18:34] LABS: BASOPHILS # (AUTO) 0.1 X10^3/uL (0.0-0.1); EOSINOPHILS # (AUTO) 0.3 x10^3/uL (0.0-0.2); EOSINOPHILS % (AUTO) 3.6 % (0.9-2.9); HEMATOCRIT 44.2 % (42.0-54.0); HEMOGLOBIN 15.4 g/dL (13.5-18.0); LYMPHOCYTES # (AUTO) 2.6 X10^3/uL (1.3-2.9); LYMPHOCYTES % (AUTO) 30.5 % (21.0-51.0); MEAN CORPUSCULAR HEMOGLOBIN 30.7 pg (27.0-34.0); MEAN CORPUSCULAR HGB CONC 34.8 g/dL (33.0-35.0); MEAN CORPUSCULAR VOLUME 88.3 fL (80.0-100.0); MEAN PLATELET VOLUME 8.1 fL (7.4-11.0); MONOCYTES # (AUTO) 0.6 x10^3/uL (0.3-0.8); MONOCYTES % (AUTO) 6.7 % (0.0-13.0); NEUTROPHILS # (AUTO) 4.9 x10^3/uL (2.2-4.8); NEUTROPHILS % (AUTO) 58.2 % (42.0-75.0); PLATELET COUNT 235 X10^3/uL (150.0-450.0); RED CELL DISTRIBUTION WIDTH 14.8 % (11.6-16.5); WHITE BLOOD COUNT 8.4 X10^3/uL (3.6-10.0)
[2017-09-12] MEDS: NITROSTAT SL PRN ×3 (18:35→19:00)
[2017-09-12 18:55] LABS: ALANINE AMINOTRANSFERASE 72 Units/L (12-78); ALBUMIN 3.8 g/dL (3.4-5.0); ALKALINE PHOSPHATASE 91 Units/L (46-116); ASPARTATE AMINO TRANSFERASE 41 Units/L (15-37); BLOOD UREA NITROGEN 12 mg/dL (7-18); CALCIUM 9.4 mg/dL (8.5-10.1); CARBON DIOXIDE 32.5 mmol/L (21-32); CHLORIDE 103 mmol/L (98-107); CKMB % 0.8 % (<4); COR NA(FOR HYPERGLY) 140 mmol/L (136-145); CREATINE KINASE 119 Units/L (39-308); CREATINE KINASE MB < 1.0 ng/mL (0-4.0); CREATININE 0.87 mg/dL (0.70-1.30); MAGNESIUM 2.1 mg/dL (1.7-2.9); SODIUM 139 mmol/L (136-145); TOTAL PROTEIN 7.7 g/dL (6.4-8.2); TROPONIN I < 0.02 ng/mL (0-1.5); eGFR NON BLACK RACES > 60 (>60)
[2017-09-12] MEDS ORDERED: MORPHINE SULFATE INJ 4 MG IVP ONE (19:09)
[2017-09-12] MEDS ORDERED: MORPHINE SULFATE INJ 4 MG ONE (19:10)
[2017-09-12] MEDS ORDERED: PERCOCET TAB 5/325 MG PO ONE (22:30)
[2017-09-12] MEDS ORDERED: FLEXERIL TAB 10 MG PO ONE (22:31)
[2017-09-12] MEDS ORDERED: FLEXERIL TAB 10 MG ONE (22:32)
[2017-09-12] MEDS ORDERED: PERCOCET TAB 5/325 MG ONE (22:32)
[2017-09-12 23:21] LABS: CKMB % 0.9 % (<4); CREATINE KINASE 115 Units/L (39-308); CREATINE KINASE MB < 1.0 ng/mL (0-4.0); TROPONIN I < 0.02 ng/mL (0-1.5)
[2017-09-13] MEDS ORDERED: NS 1000 ML 1,000 ML IV SCH (00:23)
[2017-09-13] MEDS ORDERED: ATIVAN TAB 1 MG PO PRN (00:23)
[2017-09-13] MEDS ORDERED: NITROSTAT SL PRN (00:23)
[2017-09-13 01:05] VITALS: BMI 25.6
[2017-09-13] MEDS: MORPHINE SULFATE INJ 2 MG INJ IVP PRN ×3 (01:17→09:13)
[2017-09-13 01:40] LABS: BILIRUBIN,URINE 1+ (NEGATIVE); BLOOD/HEMOGLOBIN,URINE NEGATIVE (NEGATIVE); GLUCOSE, URINE NEGATIVE (NEGATIVE); KETONES,URINE NEGATIVE (NEGATIVE); LEUKOCYTE ESTERASE ,URINE NEGATIVE (NEGATIVE); NITRITES,URINE NEGATIVE (NEGATIVE); PROTEIN,URINE 2+ (NEGATIVE); UROBILINOGEN,URINE 2+ (NORMAL)
[2017-09-13 01:46] LABS: APPEARANCE,URINE HAZY (CLEAR); COLOR,URINE DARK YELLOW (YELLOW)
[2017-09-13 01:51] LABS: BACTERIA,URINE NEGATIVE /HPF (NEGATIVE); RBC,URINE NONE SEEN /HPF (NONE SEEN); SQUAMOUS EPITHELIAL CELL,UR RARE /HPF (NEGATIVE)
[2017-09-13 01:52] LABS: CALCIUM OXALATE CRYSTALS,UR MODERATE /HPF (NEGATIVE); MUCUS,URINE MANY /HPF (NEGATIVE)
--- NOTE | 2017-09-13 01:52 | DR.CP ---
HPI Time Seen Time seen: 18:40 HPI Comment HPI Comment: PAIN ASSOCIATED WITH WEAKNESS, NEAR SYNCOPAL EPISODE AND SOB. HISTORY CAD WITH PREVIOUS GABG 5 YEARS AGO. Complaint Chief Complaint Doctor Comments: SHARP LEFT SIDED CHEST PAIN RADIATING TO SCAPULAR TIMES ONE HOUR. Chief Complaint:: PT C/O CHEST PAINS TO THE LT RIB AREA THAT RADIATES UP TO LT SHOULDER AND NUMBNESS TO LT ARM. THAT STARTED APPROX 1 HOUR AGO Reviewed Nurses Notes Review: Yes Source History Provided: Patient, Family Member and EMS Mode of Arrival Mode of Arrival: EMS Timing Onset of Chief Complaint: 09/12/17 Came on: Suddenly Duration Duration: Constant Duration: Hours Location Location of Chest Pain: Left and Chest Chest Pain Radiation Location: Left Arm and Left Shoulder Context Onset: With light exertion Cardiac Risk Factors: Smoker, Family History, Hyperlipidemia and HTN PE Risk Factors: None History of: PR and Aspirin in last 24 hours ([employer] [facility] DURING TRANSPORT.) Prehospital Care: Oxygen, IV, Monitor and ASA Quality Quality: Sharp and Stabbing Severity Severity: Moderate Modifying Factors Worsens: Coughing Impoves: Nothing Associated Signs and Symptoms Associated Signs and Symptoms: Shortness of Breath (WEAKNESS) and Other PMH PMH Past Medical History: Yes Past Medical History: COPD, GERD, Hypertension and PR Past Surgical History: Yes Surgical History: CABG/Valve Surgery, Cholecystectomy and Joint Replacement Family History History of Family Medical Conditions: Yes Family Medical History: Diabetes Mellitus, PR and Hypertension Social History Does patient currently use any type of tobacco product: Yes Have you used tobacco products in the last 12 months: Yes Type of Tobacco Use: Cigarettes Does any household member use tobacco: Yes Alcohol Use: None Do you use any recreational Drugs:: No Lives With: Alone Lives Where: Home infectious screening In the last 2 months have you had wt loss of >10#?: NO Have you had fever, night sweats or hemotysis?: No Have you traveled outside the country in the last 6 months?: No Isolation: Standard ROS Review of Systems Constitutional: Weakness and Fatigue Eyes: No Symptoms Reported ENTM: No Symptoms Reported Respiratoy: Non-Productive Cough and Short of Breath Cardiovascular: Chest Pain and Syncope (NEAR SYNCOPAL FEELING.) Gastrointestinal/Abdominal: Nausea; negative Abdominal Pain and Vomiting Genitourinary: No Symptoms Reported and Bleeding; negative Dysuria, Frequency and Hematuria Neurological: Weakness and Dizziness Musculoskeletal: Back Pain and Back (CRONIC BACK PAIN) Integumentary: No Symptoms Reported Hematologic/Lymphatic: No Symptoms Reported Endocrine: No Symptoms Reported All Other Systems: Reviewed and Negative PE Vitals Vitals: Temperature 97.7 F Pulse Rate [Left Brachial] 65 Pulse Rate 85 Respiratory Rate 18 Blood Pressure [Left Arm] 169/93 Blood Pressure [Right Arm] 178/82 Blood Pressure 185/98 O2 Sat by Pulse Oximetry 95 General Limitations: No Limitations General Appearance: Alert and In No Apparent Distress (IN NO ACUTE RESPIRATORY DISTRESS.) Head Head Exam: Normal Inspection, Atraumatic and Normocephalic Eyes Eye exam: PERRL and EOMI; negative Scleral Icterus, Conjunctival Injection, Periorbital Swelling and Periorbital Tenderness ENT ENT Exam: Normal Exam, Normal Oropharynx, Normal External Ear Exam, Mucous Membranes Moist and TM's Normal Bilaterally Chest Chest Inspection: Normal Inspection and Symmetric Chest Wall Rise; negative Tenderness and Rash Respiratory Respiratory Exam: Normal Lung Sounds Bilat; negative Chest Wall Tenderness and Respiratory Distress Respiratory Exam: Bilateral: Rhonchi and Lower: Rhonchi Cardiovascular Cardiovascular Exam: Regular Rate, Normal Rhythm and Normal Heart Sounds Pulse: Normal, Radial, Femoral, Left and Right Edema: Normal Abdominal Exam Abdominal Exam: Normal Bowel Sounds and Soft; negative Tenderness Extremities Extremities Exam: Normal Inspection Back Back Exam: Normal Inspection Neurologic Neurological Exam: Alert, Oriented X3, CN II-XII Intact and Reflexes Normal; negative Motor Sensory Deficit Psychiatric Psychiatric Exam: Anxious Skin Skin Exam: Normal Color MDM Additional Information Additional Information Obtained From: Family Differential Diagnosis Differential Diagnosis: Angina, CHF, Myocardial Infarction, Pericarditis, Pneumonia, Pneumothorax and Pulmonary Embolus COURSE Treatment Treatment: ASA 324 PO WITH EMS. S/L NTG TIMES 3 IN ED. PAIN FROM 6/10 TO 5/10. MORPHIN IV WITH ZOFRAN IN ED. PAIN IMPROVED. Reevaluation 1st: Unchanged 2nd: Improved 3rd: Improved Consultation Consultation Comments: DISCUSS PATIENT WITH DR. LANGE. HE WILL ADMIT PATIENT. Education/Counseling Education/Counseling: Patient, Family and Education Educated On: Diagnosis ROR Labs Reviewed Laboratory Results Reviewed?: Yes Result Diagrams: 09/12/17 18:26 18 18:26 Laboratory: WBC 8.4 X10^3/uL (3.6-10.0) 18 18:26 RBC 5.00 X10^6/uL (4.7-6.0) 09/12/17 18:26 Hgb 15.4 g/dL (13.5-18.0) 09/12/17 18: Hct 44.2 % (42.0-54.0) 09/12/17 18: MCV 88.3 fL (80.0-100.0) 09/12/17 18: MCH 30.7 pg (27.0-34.0) 09/12/17 18: MCHC 34.8 g/dL (33.0-35.0) 09/12/17 18: RDW 14.8 % (11.6-16.5) 09/12/17 18: Plt Count 235 X10^3/uL (150.0-450.0) 09/12/17 18: MPV 8.1 fL (7.4-11.0) 09/12/17 18: Neut % (Auto) 58.2 % (42.0-75.0) 09/12/17 18: Lymph % (Auto) 30.5 % (21.0-51.0) 09/12/17 18: [place] % (Auto) 6.7 % (0.0-13.0) 09/12/17 18: Eos % (Auto) 3.6 % (0.9-2.9) H 09/12/17 18: Baso % (Auto) 1.0 % (0.2-1.0) 09/12/17 18: Neut # (Auto) 4.9 x10^3/uL (2.2-4.8) H 09/12/17 18:26 Lymph # (Auto) 2.6 X10^3/uL (1.3-2.9) 09/12/17 18:26 [place] # (Auto) 0.6 x10^3/uL (0.3-0.8) 09/12/17 18:26 Eos # (Auto) 0.3 x10^3/uL (0.0-0.2) H 09/12/17 18:26 Baso # (Auto) 0.1 X10^3/uL (0.0-0.1) 09/12/17 18:26 Absolute Nucleated RBC 0.1 /100WBC 09/12/17 18:26 INR Target Range - 09/12/17 18:26 INR 0.92 (0.8-1.3) 09/12/17 18:26 APTT 32.0 SECONDS (22.9-36.5) 09/12/17 18:26 PTT Comment - 09/12/17 18:26 Sodium 139 mmol/L (136-145) 09/12/17 18:26 Corrected Sodium 140 mmol/L (136-145) 09/12/17 18:26 Potassium 3.7 mmol/L (3.5-5.1) 09/12/17 18:26 Chloride 103 mmol/L (98-107) 09/12/17 18:26 Carbon Dioxide 32.5 mmol/L (21-32) H 09/12/17 18:26 BUN 12 mg/dL (7-18) 09/12/17 18:26 Creatinine 0.87 mg/dL (0.70-1.30) 09/12/17 18:26 Est GFR (MDRD) Af Amer > 60 (>60) 09/12/17 18:26 Est GFR (MDRD) Non-Af > 60 (>60) 09/12/17 18:26 Glucose 130 mg/dL (65-99) H 09/12/17 18:26 Calcium 9.4 mg/dL (8.5-10.1) 09/12/17 18:26 Corrected Calcium TNP 09/12/17 18:26 Magnesium 2.1 mg/dL (1.7-2.9) 09/12/17 18:26 Total Bilirubin 0.30 mg/dL (0.2-1.0) 09/12/17 18:26 AST 41 Units/L (15-37) H 09/12/17 18:26 ALT 72 Units/L (12-78) 09/12/17 18:26 Alkaline Phosphatase 91 Units/L (46-116) 09/12/17 18:26 Creatine Kinase 115 Units/L (39-308) 09/12/17 22:50 CK-MB (CK-2) < 1.0 ng/mL (0-4.0) 09/12/17 22:50 CK/CKMB % Calc 0.9 % (<4) 09/12/17 22:50 Troponin I < 0.02 ng/mL (0-1.5) 09/12/17 22:50 Total Protein 7.7 g/dL (6.4-8.2) 09/12/17 18:26 Albumin 3.8 g/dL (3.4-5.0) 09/12/17 18:26 Globulin 3.9 g/dL (2.5-4.5) 09/12/17 18:26 Albumin/Globulin Ratio 1.0 Ratio (1.1-2.1) L 09/12/17 18:26 Specimen Type Random urine 09/13/17 00:55 Urine Color Dark yellow (YELLOW) 09/13/17 00:55 Urine Appearance Hazy (CLEAR) 09/13/17 00:55 Urine pH 5.0 (5.0 - 8.0) 09/13/17 00:55 Ur Specific [place] 1.025 (1.000-1.030) 09/13/17 00:55 Urine Protein 2+ (NEGATIVE) 09/13/17 00:55 Urine Glucose (UA) Negative (NEGATIVE) 09/13/17 00:55 Urine Ketones Negative (NEGATIVE) 09/13/17 00:55 Urine Occult Blood Negative (NEGATIVE) 09/13/17 00:55 Urine Nitrite Negative (NEGATIVE) 09/13/17 00:55 Urine Bilirubin 1+ (NEGATIVE) 09/13/17 00:55 Urine Urobilinogen 2+ (NORMAL) 09/13/17 00:55 Ur Leukocyte Esterase Negative (NEGATIVE) 09/13/17 00:55 XRAY XRAY Interpreted by: Radiologist XRAY Findings: REPORT DISCUSS WITH PATIENT AND HIS . EKG Rhythm: NSR Hypertrophy: LAE ST: Lat and Ischemia Diagnosis Discharge Problem: Back pain, Chest pain, rule out acute myocardial infarction
[2017-09-13 01:59] LABS: CKMB % 0.9 % (<4); CREATINE KINASE 106 Units/L (39-308); CREATINE KINASE MB < 1.0 ng/mL (0-4.0); TROPONIN I < 0.02 ng/mL (0-1.5)
[2017-09-13 07:09] LABS: CKMB % 0.9 % (<4); CREATINE KINASE 107 Units/L (39-308); CREATINE KINASE MB < 1.0 ng/mL (0-4.0); TROPONIN I < 0.02 ng/mL (0-1.5)
[2017-09-13 07:10] LABS: ALANINE AMINOTRANSFERASE 75 Units/L (12-78); ALBUMIN 3.6 g/dL (3.4-5.0); ALKALINE PHOSPHATASE 85 Units/L (46-116); ASPARTATE AMINO TRANSFERASE 46 Units/L (15-37); BLOOD UREA NITROGEN 12 mg/dL (7-18); CALCIUM 8.7 mg/dL (8.5-10.1); CARBON DIOXIDE 30.4 mmol/L (21-32); CHLORIDE 104 mmol/L (98-107); COR NA(FOR HYPERGLY) 139 mmol/L (136-145); CREATININE 0.87 mg/dL (0.70-1.30); SODIUM 139 mmol/L (136-145); TOTAL PROTEIN 7.3 g/dL (6.4-8.2); eGFR NON BLACK RACES > 60 (>60)
[2017-09-13 07:29] LABS: CHOL/HDL RATIO 7.1 (0.0-5.0)
[2017-09-13] MEDS ORDERED: ASPIRIN PO SCH (09:00)
[2017-09-13] MEDS ORDERED: PEPCID TAB 20 MG PO SCH (09:00)
[2017-09-13] MEDS ORDERED: LOPRESSOR TAB 50 MG PO SCH (09:00)
[2017-09-13] MEDS ORDERED: PLAVIX PO SCH (09:00)
[2017-09-13] MEDS ORDERED: LEVSIN/MAALOX/LIDOC VISC PO PRN (09:26)
[2017-09-13] MEDS ORDERED: NORCO 10/325 TAB PO PRN (09:26)
[2017-09-13] MEDS ORDERED: ZESTRIL TAB 10 MG PO SCH (10:00)
[2017-09-13] MEDS ORDERED: PROTONIX INJ 40 MG VIAL IVP SCH (10:00)
[2017-09-13 11:53] VITALS: BP 150/73
[2017-09-13 12:55] LABS: CKMB % 0.9 % (<4); CREATINE KINASE 110 Units/L (39-308); CREATINE KINASE MB < 1.0 ng/mL (0-4.0); TROPONIN I < 0.02 ng/mL (0-1.5)
--- NOTE | 2017-10-08 21:23 | DR.CARTERS ---
Short Stay Summary - Short Stay Summary for: Short Stay Summary for Date of:: 09/12/17 - Admission Date Date of Admission: 09/12/17 - Discharge Date Discharge Date: 09/13/17 - Hospital Course Hospital Course: PATIENT PRESENTED TO ED WITH PT C/O CHEST PAINS TO THE LT RIB AREA THAT RADIATES UP TO LT SHOULDER AND NUMBNESS TO LT ARM. THAT STARTED APPROX 1 HOUR AGO. PATIENT WAS GIVEN NTG AND MORPHINE IN ED WITH IMPROVEMENT. PATIENT HAS HISTORY OF CABG. SERIAL CARDIAC ENZYMES AND EKGS WERE OBTAINED. LABS WERE UNREMARKABLE. PATIENT WAS DISCHARGED HOME TO BE FOLLOWED ON OP BASIS. - Discharge Medications Discharge Medications: Home Medication List NK 09/13/17 [History] aspirin 325 mg PO DAILY #30 tab 09/13/17 [Rx] clopidogrel [Plavix] 75 mg PO DAILY #30 tab 09/13/17 [Rx] lisinopril 10 mg PO BID #60 tab 09/13/17 [Rx] metoprolol tartrate 25 mg PO BID #60 tab 09/13/17 [Rx] Prescriptions: aspirin HIEN,JAMES clopidogrel [Plavix] HIEN,JAMES lisinopril HIEN,JAMES metoprolol tartrate HIEN,JAMES - Discharge Plan Disposition: 01 HOME, SELF-CARE Condition: Stable Prescriptions: aspirin 325 mg PO DAILY #30 tab clopidogrel [Plavix] 75 mg PO DAILY #30 tab lisinopril 10 mg PO BID #60 tab metoprolol tartrate 25 mg PO BID #60 tab - Follow up/Referrals Follow up/Referrals: BEAU NICHOLE [Primary Care Provider] - 09/18/17 10:45 am - Instructions Instructions: Steps to Quit Smoking, [id number], Nonspecific Chest Pain, Easy -to-Read, Hypertension, [id number] Additional Instructions: resume home meds rx sent to pharmacy follow up with dr nichole in one week needs stress test and echo on outpt basis keep bp diary return to er if condition changes or worsens
== END 2017-09-13 12:35 | disposition home or self-care (01) ==
LOC: ER 18:16 → OBS 18:16
PROVIDERS: ADMIT Internal Medicine; ATTEND Internal Medicine
DX: I25.10 Atherosclerotic heart disease of native coronary artery without angina pectoris; J44.9 Chronic obstructive pulmonary disease, unspecified; Z79.01 Long term (current) use of anticoagulants; Z79.899 Other long term (current) drug therapy; R06.02 Shortness of breath; R26.89 Other abnormalities of gait and mobility; R94.31 Abnormal electrocardiogram [ECG] [EKG]; R73.09 Other abnormal glucose; R53.1 Weakness; R07.89 Other chest pain; M54.89 Other dorsalgia; I10 Essential (primary) hypertension; R55 Syncope and collapse; K21.9 Gastro-esophageal reflux disease without esophagitis
CPT/HCPCS: 36415; 71010; 71045; 80053; 80061; 81001; 82550; 82553; 83735; 84484; 85025; 85610; 85730; 93005; 93010; 94760; 96365; 96374; 97162; 97166; 99284; C9113; G0378; J2270; J7030